=== PATIENT | female | born 1990 | race American Indian/Alaskan Native ===

== ENCOUNTER 2017-02-02 15:13 | Outpatient (CLI) | payer BC | END 2017-02-02 15:14 | disposition home or self-care (01) | LOC: LABHHL 15:13 | PROVIDERS: ATTEND Surgery | DX: N61.1 Abscess of the breast and nipple (principal); Z87.891 Personal history of nicotine dependence | CPT/HCPCS: 87075; 87116 ==

== ENCOUNTER 2017-03-01 07:59 | Day surgery (SDC) | payer BC ==
[~2017-03-01 07:59] MED LIST: ANCEF/STERILE WATER 2 GM/20 ML IV NR
[2017-03-01] MEDS ORDERED: NACL BACTERIOSTATIC INFILTRATI ONE (08:31)
[2017-03-01] MEDS ORDERED: NACL 0.9% 1000 ML 1,000 ML IV SCH (08:34)
[2017-03-01] MEDS ORDERED: PEPCID IV NR (08:34)
[2017-03-01] MEDS ORDERED: ZOFRAN IV NR (08:34)
--- NOTE | 2017-03-01 08:34 | Anesthesia Day of Surgery ---
Anesthesia Day of Surgery - Day of Surgery Patient Examined: Yes Patient H&P Reviewed: Yes Patient is NPO: Yes
--- NOTE | 2017-03-01 08:34 | Anesthesia Consultation ---
Anesthesia Consult and Med Hx Date of service: 03/01/17 - Airway Anesthetic Teeth Evaluation: Good ROM Head & Neck: Adequate Mental/Hyoid Distance: Adequate Mallampati Class: Class II Intubation Access Assessment: Probably Good - Pulmonary Exam CTA: Yes - Cardiac Exam Cardiac Exam: RRR - Pre-Operative Health Status ASA Pre-Surgery Classification: ASA3 Proposed Anesthetic Plan: General - Pulmonary Hx Smoking: Yes (PAST SMOKER-CIGARS 2 PD FOR 7 YRS) Hx Sleep Apnea: No ([facility] PRE SCREEN LOW RISK) - Cardiovascular System Hx Hypertension: No - Central Nervous System Hx Psychiatric Problems: No - Hematic Hx Anemia: Yes - Other Systems Hx Cancer: No Hx Obesity: Yes (bmi 48)
[2017-03-01] MEDS ORDERED: DILAUDID IV PRN (08:56)
[2017-03-01] MEDS ORDERED: REGLAN IV NR (09:00)
[2017-03-01] MEDS ORDERED: VERSED IV NR (09:00)
[2017-03-01] MEDS ORDERED: TRANSDERM-SCOP TD NR (09:00)
[2017-03-01] MEDS ORDERED: DECADRON IV NR (09:00)
[2017-03-01 09:11] LABS: Hematocrit 39.3 % (30.3-42.9)
[2017-03-01] MEDS ORDERED: DIPRIVAN 10 MG/ML IV ONE ×2 (09:21→10:50)
[2017-03-01] MEDS ORDERED: SUBLIMAZE ONE (09:21)
[2017-03-01] MEDS ORDERED: VERSED ONE (09:21)
[2017-03-01] MEDS ORDERED: XYLOCAINE 1% 20 mL ONE (09:44)
[2017-03-01] MEDS ORDERED: MARCAINE 0.25% INFILTRATI ONE ×2 (09:44→10:30)
[2017-03-01] MEDS ORDERED: XYLOCAINE 1% 20 mL INFILTRATI ONE (10:30)
[2017-03-01] MEDS ORDERED: NACL 0.9% IR ONE (10:44)
--- NOTE | 2017-03-01 10:51 | Short Stay Summary ---
Short Stay Documentation Date of service: 03/01/17 Narrative H&P: 26 y/o obese AA female presents for incision and drainage of bilateral axillary abscesses. She has an longstanding history of hidradenitis and was seen in the office for pain under the axilla and drainage from multiple openings. - History Principal diagnosis: bilateral suppurative axillary hidradenitis H&P: obtained from office Past Medical History: other (obesity) Past Surgical History: Other (bilateral reduction mammoplasty) Social history: no significant social history - Allergies and Medications Current Medications: Allergies No Known Allergies Allergy (Verified 01/06/16 06:20) Home Medications Medication Instructions Recorded Confirmed Last Taken Type Clindamycin [Clindamycin CAP] 300 mg PO BID 12/31/15 03/01/17 02/28/17 History HYDROcodone/APAP 5-325 [[place] 1 each PO Q6HR PRN #30 tablet 01/06/16 03/01/17 Rx 5/325] Active Medications Cefazolin Sodium (Ancef/Sterile Water 2 Gm/20 Ml) 2 gm IV PREOP NR Stop: 03/01/17 23:59 Famotidine (Pepcid) 20 mg IV PREOP NR Stop: 03/01/17 12:00 Last Admin: 03/01/17 09:29 Dose: 20 mg Hydromorphone HCl (Dilaudid) 0.5 mg IV Q10MIN PRN PRN Reason: Pain , Severe (7-10) Stop: 03/01/17 15:00 Sodium Chloride (Nacl 0.9% 1000 Ml) 1,000 mls @ 75 mls/hr IV DIRECT MARIA C Last Admin: 03/01/17 09:26 Dose: 75 mls/hr Metoclopramide HCl (Reglan) 10 mg IV PREOP NR Stop: 03/01/17 12:00 Last Admin: 03/01/17 09:31 Dose: 10 mg Midazolam HCl (Versed) 2 mg IV PREOP NR Stop: 03/01/17 23:59 Last Admin: 03/01/17 09:37 Dose: 2 mg Ondansetron HCl (Zofran) 4 mg IV PREOP NR Stop: 03/01/17 12:20 Last Admin: 03/01/17 09:35 Dose: 4 mg Scopolamine (Transderm-Scop) 1 each TD PREOP NR Stop: 03/01/17 15:00 Last Admin: 03/01/17 09:27 Dose: 1 each - Physical exam General appearance: no acute distress HEENT: Atraumatic Lungs: Normal air movement Breasts: other (well healed breast incisions) Gastrointestinal: normal Extremities: No edema - Brief post op/procedure progress note Date of procedure: 03/01/17 Pre-op diagnosis: bilateral suppurative axillary hidradenitis Post-op diagnosis: same Procedure: incision and drainage of bilateral axilla abscesses Anesthesia: MAC, local Findings: indurated and fluctuant areas in bilateral axilla with minimal purulent drainage Surgeon: JEFFRY LUO General Magistrate: TOM BLANCO Estimated blood loss: minimal Pathology: none Condition: stable - Hospital course Hospital course: Patient was recovered in PACU and post operative course was uncomplicated. She was discharged to home in stable condition. - Disposition Condition at discharge: Good Disposition: DC-01 TO HOME OR SELFCARE - Discharge Diagnoses (1) Abscess of arm, right Status: Acute (2) Abscess of axilla, left Status: Acute Short Stay Discharge Plan Activity: no restrictions Diet: regular Wound: other (keep both underams clean and dry. There is a drain in the right underarm wound, leave in place, DO NOT REMOVE. There is a packing strip in the left underarm wound, may remove this tomorrow before shower. Clean both underarms with soap and water in the shower. Pat dry and cover with a gauze dressing. ) Follow up with: FELICIANO CALVO MD [Primary Care Provider] - 7 Days JEFFRY LUO MD [Staff Physician] - 03/06/17 (Monday03/06/17)
--- NOTE | 2017-03-01 10:58 | Operative Report ---
Operative Report Operative Report: Date of Service: March 01, 2017 Preoperative diagnosis: Bilateral suppurative hidradenitis of the axilla Postoperative diagnosis: Same Procedure: Bilateral axillary incision and drainage of separative hidradenitis Surgeon: Yulia Plasencia M.D. Asst.: Anesthesia: Mac local Findings: Known bilateral suppurative hydradenitis right greater than left with incision and drainage performed. Complications: None Estimated blood loss: Minimal Drains: Quarter inch right Barbara drain t Disposition:PACU in good condition Indications for operative procedure: This is a 26-year-old lady with known history of bilateral axillary hidradenitis right greater than left. Patient with recent ongoing infection of both axillas. Recommnedations were for incision and drainage and the patient wished to proceed to the operating room given significant amount of pain. Procedure in detail: The patient was taken to the operating room. Bilateral axillas were prepped and draped in the normal sterile operative fashion. A local Mac was a timekeeper supervisor. First began with incision and drainage of the left axillary abscess that was noted. Skin incision was made with 15 blade knife and area was appropriately opened using hemostats and 1-2 mL of purulence was noted. Area was packed. Attention was then taken towards the right axilla. Ultrasound was used in the area of concern. Fluid collection pocket was identified of the axilla. Area of draining abscess site was opened further with a 15 blade knife and area was appropriately probe and pocket of fluid collection was opened further. A counter incision was then made for placement of a Barbara drain that was sutured into place. The patient tolerated the procedure very well and both wounds were appropriately dressed and patient was awakened from anesthesia and transported to PACU in good condition.
[2017-03-01] MEDS ORDERED: XYLOCAINE MPF 2% ONE (11:17)
[2017-03-01] MEDS ORDERED: NORCO 5/325 PO PRN (11:51)
--- NOTE | 2017-03-01 12:45 | Post Anesthesia Evaluation ---
- Post Anesthesia Evaluation Patient Participated: Yes Airway Patent: Yes Stable Respiratory Function: Yes Nausea/Vomiting: No Temp > 96.8F: Yes Pain Manageable: Yes Adequeate Hydration: Yes Anesthesia Complications: No Block Receding Appropriately: Not Applicable Patient on Ventilator: No
[2017-03-01] MEDS ORDERED: NORCO 5/325 PO ONE (13:00)
[2017-03-01 13:44] VITALS: BP 141/77
== END 2017-03-01 12:35 | disposition home or self-care (01) ==
LOC: OR 07:59
PROVIDERS: ATTEND Surgery
DX: L02.412 Cutaneous abscess of left axilla (principal); L02.411 Cutaneous abscess of right axilla; D64.9 Anemia, unspecified; E66.9 Obesity, unspecified; Z68.42 Body mass index [BMI] 45.0-49.9, adult; Z98.890 Other specified postprocedural states; Z87.891 Personal history of nicotine dependence
CPT/HCPCS: 10061; 36415; 81025; 85014; 85018; J0690; J1100; J1170; J2250; J2405; J2704; J2765; J3010; J7030